=== PATIENT | male | born 1950 | race Caucasian/White ===

== ENCOUNTER 2019-01-04 11:40 | Inpatient (IN) | payer MEDICARE, BC ==
[~2019-01-04] VITALS: Ht 184.2 cm; Wt 112.5 kg
[2019-01-04] MEDS ORDERED: LISI-607 PO (12:04)
[2019-01-04] MEDS ORDERED: ATEN50TA PO (12:04)
[2019-01-04] MEDS ORDERED: AMLO5TAB9 PO (12:04)
[2019-01-04] MEDS ORDERED: SIMV-46 PO (12:04)
[2019-01-04] MEDS ORDERED: TRAZ-214 PO (12:04)
[2019-01-04] MEDS ORDERED: LOXA50CA PO (12:04)
--- NOTE | 2019-01-04 12:06 | NUR ---
PT AMBULATED TO BATHROOM WITH STEADY GAIT.
--- NOTE | 2019-01-04 12:10 | NUR ---
PT MEDICALLY CLEARED, TRANSFER TO [facility] PENDING ON BED AVAILABILITY. HOOKER OPERATOR AWARE.
--- NOTE | 2019-01-04 12:24 | NUR ---
ANA CRISTINA ONE TO ONE SITTER AT BEDSIDE NOW.
--- NOTE | 2019-01-04 13:05 | NUR ---
PT EATING HOSPITAL TRAY WITH GOOD APETITE
[2019-01-04] MEDS ORDERED: NEOMY/BACITRA/POLYMYXIN B OINT UD PACKET TP ONE ×2 (14:44→15:00)
[2019-01-04] MEDS ORDERED: MAGNESIUM HYDROXIDE 30 ML LIQUID UDC PO PRN (15:15)
[2019-01-04] MEDS ORDERED: ACETAMINOPHEN 325 MG TABLET PO PRN (15:15)
[2019-01-04] MEDS ORDERED: MAG HYDROX/AL HYDROX/SIMETH 30 ML LIQUID UDC PO PRN (15:15)
--- NOTE | 2019-01-04 15:16 | NUR ---
PT TRANSFERED TO U.
[2019-01-04] MEDS: LORAZEPAM 0.5 MG TABLET PO PRN (16:22)
--- NOTE | 2019-01-04 17:19 | NUR ---
GPS ADMITTING NOTES: ADMITTING THIS 68YO M PATIENT ON WHEELCHAIR ACCOMPANIED BY ER NURSE, PATIENT AOX1-2, DENIES PAIN, PATIENT HAS RFA SKIN TEAR FROM ADMISSION THAT HE SUSTAINED, FACE TO FACE ASSESSMENT DONE, PATIENT GRANDIOSE MANIC HYPERVERBAL NEEDS REDIRECTION ALL THE TIME, PATIENT WAS GIVEN ADVISEMENT ON HIS 5150 HOLD THAT WILL ON 01/05/19 AT 1719, PATIENT SIGNED DOCUMENTS AND GIVEN HIS PATIENT HANDBOOK, PATIENT WERE ORIENT TO THE UNIT AND TO HIS ROOMMATE, CALLED AND LEFT MESSAGE WITH FAMILY, WILL CONTINUE MONITOR,
--- NOTE | 2019-01-04 18:07 | NUR ---
PATIENT REMAIN HYPERVERBAL AND MANIC HOWEVER REDIRECTABLE , WILL CONTINUE MONITOR
[2019-01-04] MEDS ORDERED: ATENOLOL 50 MG TABLET PO ONE (20:15)
[2019-01-04] MEDS ORDERED: AMLODIPINE 5 MG TABLET PO ONE (20:15)
[2019-01-04] MEDS ORDERED: LISINOPRIL 5 MG TABLET PO ONE (20:15)
--- NOTE | 2019-01-04 20:17 | NUR ---
PATIENT'S B/P IS 164/85 MM[facility] AND PULSE IS 84BPM. DR CHOUDHURY WAS NOTIFY AND OBTAINED NEW ORDER TO ADMINISTER HIS REGULAR B/P HOME MEDS, ONE TIME ORDER. ORDER NOTED AND CARRIED OUT. WILL CONTINUE TO MONITOR.
[2019-01-04 20:20] VITALS: BP 164/85
[2019-01-04] MEDS: SIMVASTATIN 20 MG TABLET PO SCH (20:48)
--- NOTE | 2019-01-04 22:00 | NUR ---
received to care, noisy, manic, and hyperverbal. needs frequent redirection. difficult to redirect, at times. pt is very disorganized. will continue to monitor closely.
[2019-01-05] MEDS: TEMAZEPAM 7.5 MG CAPSULE PO PRN ×2 (00:27→22:18)
[2019-01-05 06:11] VITALS: BP 146/73
--- NOTE | 2019-01-05 06:40 | NUR ---
B/P this morning is 146/73. did not sleep, at all, last night, even after being given PRN restoril. remains labile and loud in his speech. needs frequent redirection.
[2019-01-05 07:30] VITALS: BP 158/81
[2019-01-05] MEDS: LORAZEPAM 0.5 MG TABLET PO PRN (07:45)
[2019-01-05] MEDS: LISINOPRIL 5 MG TABLET PO SCH (08:57)
[2019-01-05] MEDS: ATENOLOL 50 MG TABLET PO SCH (08:57)
[2019-01-05] MEDS: AMLODIPINE 5 MG TABLET PO SCH (08:58)
--- NOTE | 2019-01-05 11:20 | NUR ---
Initial Discharge Plan Patient currently lives at home with his , Kathleen Alonso ([phone]) at their home ([address] [address]; [phone]). Per patient, he would like to return home when he is feeling stable and the doctor states he is ready. Patient's sister, Lorin Hodge ([phone]) is aware of patient's hospitalization and is involved in patient's overall care. forming process line worker will continue to work with patient, family, and MD to ensure a safe and proper discharge plan.
--- NOTE | 2019-01-05 11:22 | NUR ---
Family Contact: Sw Spoke with Patient's sister, Lorin Hodge ([phone]) who is aware of patient's hospitalization and is involved in patient's overall care. Lorin Informed this adjusto writer operator about patient's current living situation, and she stated it is a safe environment for the patient to continue living with his .
--- NOTE | 2019-01-05 11:43 | NUR ---
Family Contact: SW called patient's , Kathleen Alonso ([phone]) however, unsuccessful and left voicemail. Will attempt to call again at a later hour.
[2019-01-05] MEDS: OLANZAPINE 2.5 MG TABLET PO SCH ×2 (12:06→16:37)
[2019-01-05] MEDS: OXCARBAZEPINE 150 MG TABLET PO SCH ×3 (13:03→20:15)
[2019-01-05 15:57] VITALS: BP 126/71
--- NOTE | 2019-01-05 17:37 | NUR ---
GPS: RECEIVED PATIENT ON THE HALLWAY WITH HIS PEN AND PAPER, PATIENT HYPERVERBAL, HOWEVER PATIENT WAS REDIRECTABLE, EASILY IRRITATED AND MANIC, SEEN BY DR. MAX , STARTED WITH MEDICATION, PATIENT COMPLIANT,DID CHANGE WOUND DRESSING FROM HIS RFA SKIN TEAR, NO DISTRESS AT THIS TIME,
[2019-01-05] MEDS: SIMVASTATIN 20 MG TABLET PO SCH (20:15)
[2019-01-05] MEDS ORDERED: OLANZAPINE 5 MG TABLET PO SCH (21:00)
[2019-01-05 21:05] VITALS: BP 156/83
--- NOTE | 2019-01-05 22:00 | NUR ---
received to care, watching tv with peers, pleasant upon approach. remains manic, grandiose, and hyperverbal, but is easy to redirect by staff. compliant with medications and staff direction. as of 2199, he remains awake, watching tv. no distress noted.
--- NOTE | 2019-01-05 22:18 | NUR ---
PRN restoril given, for insomnia.
--- NOTE | 2019-01-05 23:00 | NUR ---
appears to be asleep. no distress noted.
[2019-01-06 07:30] VITALS: BP 182/84
[2019-01-06] MEDS: OXCARBAZEPINE 150 MG TABLET PO SCH ×2 (08:16→12:19)
[2019-01-06] MEDS: OLANZAPINE 2.5 MG TABLET PO SCH ×2 (08:16→17:15)
[2019-01-06] MEDS: LORAZEPAM 0.5 MG TABLET PO PRN ×3 (08:16→17:15)
[2019-01-06] MEDS: AMLODIPINE 5 MG TABLET PO SCH (08:16)
[2019-01-06] MEDS: LISINOPRIL 5 MG TABLET PO SCH (08:17)
[2019-01-06] MEDS: ATENOLOL 50 MG TABLET PO SCH (08:17)
--- NOTE | 2019-01-06 08:53 | NUR ---
ATIVAN 0.5MG GIVEN ORDERED WASTED WITH EL DERSA Addendum: 01/06/19 at 0906 by Sulma Alcaraz RN ERROR CHARTING ON WRONG CHART.
[2019-01-06 16:27] VITALS: BP 138/70
[2019-01-06] MEDS ORDERED: OXCARBAZEPINE 300 MG TABLET PO SCH (17:00)
[2019-01-06 19:53] VITALS: BP 147/65
[2019-01-06] MEDS: DOCUSATE SODIUM 100 MG CAPSULE PO SCH (20:40)
[2019-01-06] MEDS: SIMVASTATIN 20 MG TABLET PO SCH (20:41)
[2019-01-06] MEDS ORDERED: OLANZAPINE 5 MG TABLET PO SCH (21:00)
--- NOTE | 2019-01-06 22:00 | NUR ---
received to care, watching tv with peers, pleasant upon approach. appears less manic, grandiose, and hyperverbal, and is easy to redirect by staff. compliant with medications and staff direction. as of 2199, he remains awake, watching tv. no distress noted. will continue to monitor closely.
[2019-01-06] MEDS: TEMAZEPAM 7.5 MG CAPSULE PO PRN (23:25)
--- NOTE | 2019-01-06 23:25 | NUR ---
remains awake. PRN restoril given, for insomnia. currently lying in bed. no distress noted.
--- NOTE | 2019-01-06 23:55 | NUR ---
appears to be asleep. no distress noted.
[2019-01-07] MEDS: LORAZEPAM 0.5 MG TABLET PO PRN (05:11)
--- NOTE | 2019-01-07 05:11 | NUR ---
PRN ativan given for anxiety
--- NOTE | 2019-01-07 06:27 | NUR ---
appears calmer, now. slept 3.25 hours. currently taking a shower. no distress noted.
[2019-01-07 07:30] VITALS: BP 143/78
[2019-01-07] MEDS: AMLODIPINE 10 MG TABLET PO SCH (08:38)
[2019-01-07] MEDS: LISINOPRIL 5 MG TABLET PO SCH (08:38)
[2019-01-07] MEDS: DOCUSATE SODIUM 100 MG CAPSULE PO SCH ×2 (08:39→20:13)
[2019-01-07] MEDS: ATENOLOL 50 MG TABLET PO SCH (08:39)
[2019-01-07] MEDS: OLANZAPINE 2.5 MG TABLET PO SCH ×2 (08:39→17:03)
[2019-01-07] MEDS: OXCARBAZEPINE 150 MG TABLET PO SCH ×3 (08:39→17:03)
[2019-01-07] MEDS ORDERED: AMLODIPINE 5 MG TABLET PO SCH (09:00)
[2019-01-07] MEDS ORDERED: IBUPROFEN 400 MG TABLET PO PRN (12:45)
[2019-01-07 16:00] VITALS: BP 117/57
[2019-01-07 20:12] VITALS: BP 142/67
[2019-01-07] MEDS: OXCARBAZEPINE 300 MG TABLET PO SCH (20:13)
[2019-01-07] MEDS: OLANZAPINE 5 MG TABLET PO SCH (20:14)
[2019-01-07] MEDS: SIMVASTATIN 20 MG TABLET PO SCH (20:14)
[2019-01-07] MEDS: TEMAZEPAM 7.5 MG CAPSULE PO PRN (23:40)
[2019-01-08 07:30] VITALS: BP 145/83
[2019-01-08] MEDS: OXCARBAZEPINE 150 MG TABLET PO SCH ×3 (08:23→17:10)
[2019-01-08] MEDS: AMLODIPINE 10 MG TABLET PO SCH (08:23)
[2019-01-08] MEDS: OLANZAPINE 2.5 MG TABLET PO SCH ×2 (08:23→17:10)
[2019-01-08] MEDS: DOCUSATE SODIUM 100 MG CAPSULE PO SCH ×2 (08:24→20:17)
[2019-01-08] MEDS: ATENOLOL 50 MG TABLET PO SCH (08:24)
[2019-01-08] MEDS: LISINOPRIL 5 MG TABLET PO SCH (08:24)
[2019-01-08 16:00] VITALS: BP 116/64
--- NOTE | 2019-01-08 17:10 | NUR ---
Gps/Technology Intern- Talking loud, laughing , irritable, rudness noted. tends to hang out by the Nurses Station, instructed to stay in the activity room . Patient had been on the phone most of the pm.
[2019-01-08] MEDS: OLANZAPINE 5 MG TABLET PO SCH (20:17)
[2019-01-08] MEDS: OXCARBAZEPINE 300 MG TABLET PO SCH (20:17)
[2019-01-08] MEDS: SIMVASTATIN 20 MG TABLET PO SCH (20:17)
[2019-01-08 20:40] VITALS: BP 146/64
[2019-01-08] MEDS: TEMAZEPAM 7.5 MG CAPSULE PO PRN (22:17)
[2019-01-09 07:30] VITALS: BP 131/53
[2019-01-09] MEDS: DOCUSATE SODIUM 100 MG CAPSULE PO SCH ×2 (08:31→20:05)
[2019-01-09] MEDS: OLANZAPINE 2.5 MG TABLET PO SCH ×2 (08:31→17:15)
[2019-01-09] MEDS: OXCARBAZEPINE 150 MG TABLET PO SCH ×3 (08:31→17:15)
[2019-01-09] MEDS: LISINOPRIL 5 MG TABLET PO SCH (08:32)
[2019-01-09] MEDS: AMLODIPINE 10 MG TABLET PO SCH (08:32)
[2019-01-09] MEDS: ATENOLOL 50 MG TABLET PO SCH (08:33)
--- NOTE | 2019-01-09 11:03 | NUR ---
Gps/Project Management It Specialist- Patient noted asleep in bed for about 30 minutes.
[2019-01-09 15:58] VITALS: BP 133/64
--- NOTE | 2019-01-09 15:59 | NUR ---
Gps/Bag Machine Set Up Operator- Attending and participating in his group activities , episodes of being hyperverbal , manic labile mood , talking and laughing inappropriately..
--- NOTE | 2019-01-09 16:44 | NUR ---
PT NOTED QUITE MANIC, INTRUSIVE, RESPONDING TO INTERNAL STIMULI. TALKING TO SELF AND LAUGHING INAPPROPRIATELY. REQUIRES FREQUENT REDIRECTION. ATTENDING ACTIVITIES AT THIS TIME.
[2019-01-09 20:00] VITALS: BP 111/60
--- NOTE | 2019-01-09 20:00 | NUR ---
RECEIVED PATIENT IN THE DAY ROOM SITTING IN A CHAIR WITH OTHER CLIENTS. PATIENT IS NOTED A/O X 1, HYPERVERBAL, TANGENTAL, WORD SALAD, AND DELUSIONAL. IMPAIRED INSIGHT AND JUDGMENT IS NOTED TO THE REASON FOR HIS ADMISSION TO [facility]HU. HOWEVER, PATIENT IS REDIRECTABLE. V/S STABLE AT THIS TIME, PATIENT IS REASSURED FOR HIS SAFETY. SAFETY AND FALL PRECAUTION IN PLACE. WILL CONTINUE TO MONITOR.
[2019-01-09] MEDS: OLANZAPINE 5 MG TABLET PO SCH (20:05)
[2019-01-09] MEDS: SIMVASTATIN 20 MG TABLET PO SCH (20:05)
[2019-01-09] MEDS: OXCARBAZEPINE 300 MG TABLET PO SCH (20:06)
[2019-01-09] MEDS: TEMAZEPAM 7.5 MG CAPSULE PO PRN (23:03)
[2019-01-10 07:30] VITALS: BP_SYST 112; BP_SYST 120; BP_DIAS 60; BP_DIAS 74
[2019-01-10] MEDS: OLANZAPINE 2.5 MG TABLET PO SCH ×2 (08:47→17:07)
[2019-01-10] MEDS: OXCARBAZEPINE 150 MG TABLET PO SCH ×3 (08:47→17:07)
[2019-01-10] MEDS: DOCUSATE SODIUM 100 MG CAPSULE PO SCH ×2 (08:47→20:24)
[2019-01-10] MEDS: AMLODIPINE 10 MG TABLET PO SCH (08:47)
[2019-01-10] MEDS: LISINOPRIL 5 MG TABLET PO SCH (08:48)
[2019-01-10] MEDS: ATENOLOL 50 MG TABLET PO SCH (08:49)
--- NOTE | 2019-01-10 13:05 | NUR ---
Gps/Manager Wind- Stayed in the activity room during lhis meals. Right forarm skin tear was cleansed with NS, redressed, ,< redness, site covered wit bandaid. Interactive , hyperverbal ,conversant with staff, noted orientation x 2-3., less needy .
[2019-01-10 16:02] VITALS: BP 105/63
[2019-01-10 20:16] VITALS: BP 146/81
[2019-01-10] MEDS: OLANZAPINE 5 MG TABLET PO SCH (20:24)
[2019-01-10] MEDS: SIMVASTATIN 20 MG TABLET PO SCH (20:24)
[2019-01-10] MEDS: OXCARBAZEPINE 300 MG TABLET PO SCH (20:24)
[2019-01-10] MEDS: TEMAZEPAM 7.5 MG CAPSULE PO PRN (23:07)
--- NOTE | 2019-01-11 06:16 | NUR ---
PT SLEPT 3 HOURS AND 45 MIN. PT SHOWS NO SIGNS OF ACUTE DISTRESS. PT COMPLIANT WITH CARE. PRESCRIBED MEDICATION GIVEN AND PT TOLERATED IT WELL. GIVEN . PT HYPERVERBAL. NEEDS REORIENTATION. PT TOLERATED IT WELL. SAFETY AND COMFORT PROVIDED. WILL ENDORSE TO INCOMING NURSE FOR CONTINUITY OF CARE.
[2019-01-11 07:30] VITALS: BP 151/78
--- NOTE | 2019-01-11 08:25 | NUR ---
Social work note/FIREARMS REPORT ([employer]): Dry Color Tester completed and submitted a [employer] firearms report for 5250 grave disability certifications. A copy of report has been placed in patient chart.
[2019-01-11] MEDS: OLANZAPINE 2.5 MG TABLET PO SCH ×2 (08:38→16:50)
[2019-01-11] MEDS: LISINOPRIL 5 MG TABLET PO SCH (08:39)
[2019-01-11] MEDS: OXCARBAZEPINE 150 MG TABLET PO SCH ×2 (08:39→12:55)
[2019-01-11] MEDS: DOCUSATE SODIUM 100 MG CAPSULE PO SCH ×2 (08:39→20:09)
[2019-01-11] MEDS: AMLODIPINE 10 MG TABLET PO SCH (08:39)
[2019-01-11] MEDS: ATENOLOL 50 MG TABLET PO SCH (08:40)
--- NOTE | 2019-01-11 08:43 | NUR ---
Social work note/Discharge note: Patient will be discharged back home today ([address], [place] [address]; [phone]). Patient will be picked up by his sister, Lorin Villaseñor ([phone]) at 11:00. Patient is alert and oriented times 4, denies suicidal or homicidal ideation, and is able to provide for self-care. Patient will be following up with his psychiatrist Marino Livingston (Address: [address] [place] [address]; ). Patient will also be following up with his primary care physician: Dr. Juanpablo Canales (Address: [address], [place] [address]; ). Patient was also provided with additional mental health referrals to [facility] ([address], [place] [address] ) and the [facility] ([phone]). Patient was also provided with a brief substance abuse intervention and provided with referrals to [facility] ([phone]) and [facility] [place] [facility] . Addendum: 01/11/19 at 0912 by TRIPP GUARDADO Discharge today cancelled, will be postponed.
[2019-01-11] MEDS: LORAZEPAM 0.5 MG TABLET PO PRN ×2 (12:55→16:50)
[2019-01-11 15:31] VITALS: BP 143/74
[2019-01-11 18:15] LABS: *BILIRUBIN,URIN NEGATIVE (NEGATIVE); *CLARITY,URINE CLEAR (CLEAR); *COLOR,URINE YELLOW (YELLOW); *KETONES,URINE NEGATIVE (NEGATIVE); *UROBILINOGEN,URINE 0.2 E.U./dl (NORMAL); LEUKOCYTE ESTERASE ,URINE NEGATIVE (NEGATIVE); NITRITE, URINE NEGATIVE (NEGATIVE); UGLUCOSE NEGATIVE (NEGATIVE)
[2019-01-11 18:24] LABS: *BLOOD, URINE NEGATIVE (NEGATIVE)
[2019-01-11 20:00] VITALS: BP 141/73
[2019-01-11] MEDS: OLANZAPINE 5 MG TABLET PO SCH (20:09)
[2019-01-11] MEDS: SIMVASTATIN 20 MG TABLET PO SCH (20:09)
[2019-01-11] MEDS: OXCARBAZEPINE 300 MG TABLET PO SCH (20:09)
[2019-01-11] MEDS: TEMAZEPAM 7.5 MG CAPSULE PO PRN (22:26)
[2019-01-12 06:16] LABS: BASOPHILS % (AUTO) 0.6 % (0.0-2.0); EOSINOPHILS # (AUTO) 0.2 K/uL (0.0-0.7); EOSINOPHILS % (AUTO) 2.5 % (0.0-7.0); HEMATOCRIT 35.4 % (36.7-47.1); HEMOGLOBIN 12.5 g/dL (12.5-16.3); LYMPHOCYTES # (AUTO) 1.9 K/uL (20.0-40.0); LYMPHOCYTES % (AUTO) 28.9 % (20.5-51.5); MEAN CORPUSCULAR HEMOGLOBIN 31.8 uug (23.8-33.4); MEAN CORPUSCULAR HGB CONC 35 g/dL (32.5-36.3); MEAN CORPUSCULAR VOLUME 89.9 fL (73.0-96.2); MONOCYTES # (AUTO) 1.1 K/uL (2.0-10.0); MONOCYTES % (AUTO) 16.4 % (0.0-11.0); NEUTROPHILS # (AUTO) 3.4 K/uL (1.8-8.9); NEUTROPHILS % (AUTO) 51.6 % (38.5-71.5); PLATELET COUNT (AUTO) 156 K/uL (152-348); RED BLOOD CELL COUNT(AUTO) 3.93 MIL/uL (4.06-5.63); WHITE BLOOD COUNT (AUTO) 6.6 K/uL (3.6-10.2)
[2019-01-12 06:28] LABS: BILIRUBIN,TOTAL 0.3 mg/dL (0.2-1.0); CREATININE 0.7 mg/dL (0.6-1.3); POTASSIUM 3.7 mmol/L (3.5-5.1); TOTAL PROTEIN, SERUM 6.2 g/dL (6.4-8.2)
--- NOTE | 2019-01-12 06:50 | NUR ---
PATIENT SLEPT FOR APPROX 6.30 HRS THROUGH THE NIGHT. HE IS NOTED LESS HYPERVERBAL, LESS INTRUSIVE. HE IS REDIRECTABLE. WILL CONTINUE TO MONITOR,
[2019-01-12 07:28] LABS: EOSINOPHILS % (MANUAL) 2 % (0-8); LYMPHOCYTES % (MANUAL) 29 % (20-40); MONOCYTES % (MANUAL) 12 % (2-10); NEUTROPHILS % (MANUAL) 57 % (42-75)
[2019-01-12 07:30] VITALS: BP 146/67
[2019-01-12] MEDS: DOCUSATE SODIUM 100 MG CAPSULE PO SCH ×2 (08:59→20:05)
[2019-01-12] MEDS: OXCARBAZEPINE 150 MG TABLET PO SCH ×2 (08:59→13:12)
[2019-01-12] MEDS: LISINOPRIL 5 MG TABLET PO SCH (09:00)
[2019-01-12] MEDS: AMLODIPINE 10 MG TABLET PO SCH (09:00)
[2019-01-12] MEDS: ATENOLOL 50 MG TABLET PO SCH (09:00)
[2019-01-12] MEDS: OLANZAPINE 2.5 MG TABLET PO SCH ×2 (09:01→17:55)
[2019-01-12 16:27] VITALS: BP 153/63
[2019-01-12 20:00] VITALS: BP 116/59
[2019-01-12] MEDS: OXCARBAZEPINE 300 MG TABLET PO SCH (20:05)
[2019-01-12] MEDS: SIMVASTATIN 20 MG TABLET PO SCH (20:05)
[2019-01-12] MEDS: OLANZAPINE 5 MG TABLET PO SCH (20:05)
[2019-01-12] MEDS: TEMAZEPAM 7.5 MG CAPSULE PO PRN (22:18)
[2019-01-13 08:00] VITALS: BP 109/55
--- NOTE | 2019-01-13 08:14 | NUR ---
Social Work Note/Discharge Note: Patient will be discharged back home today ([address], [place] [address]; [phone]). Patient will be picked up by his sister, Lorin Villaseñor ([phone]) at 1:00pm. Patient is alert and oriented times 4, denies suicidal or homicidal ideation, and is able to provide for self-care. Patient will be following up with his psychiatrist Marino Livingston (Address: [address] [place] [address]. [address] [place] [address]; ); Precipitate Washer contacted to make a follow up appointment and left a voicemail for a return call. Patient will also be following up with his primary care physician: Dr. Juanpablo Canales (Address: [address], [place] [address]; ) and has a follow up appointment scheduled on Saturday, January 26, 2019 at 4:00PM. Patient was also provided with additional mental health referrals to [facility] ([address], [place] [address] ) and the [facility] ([phone]). Patient was also provided with a brief substance abuse intervention and provided with referrals to [facility] ([phone]) and [facility] [place] [facility] . Addendum: 01/13/19 at 0817 by TRIPP GUARDADO Patient cotton picker time for discharge will be at 11:00AM.
[2019-01-13 09:00] VITALS: BP 109/55
[2019-01-13] MEDS: AMLODIPINE 10 MG TABLET PO SCH (09:00)
[2019-01-13] MEDS: ATENOLOL 50 MG TABLET PO SCH (09:00)
[2019-01-13] MEDS: LISINOPRIL 5 MG TABLET PO SCH (09:00)
[2019-01-13] MEDS: OXCARBAZEPINE 150 MG TABLET PO SCH (09:17)
[2019-01-13] MEDS: OLANZAPINE 2.5 MG TABLET PO SCH (09:17)
[2019-01-13] MEDS: DOCUSATE SODIUM 100 MG CAPSULE PO SCH (09:17)
[2019-01-13 10:25] LABS: CREATININE 0.7 mg/dL (0.6-1.3)
--- NOTE | 2019-01-13 11:39 | NUR ---
Patient is being discharged back home today. Pt's sister, Lorin Villaseñor is here to pick him up. Pt is A/O x4. No distress. Pt agreeing to go. Discharge instructions given, patient verbalizes understanding. All belongings and valuables returned.
== END 2019-01-13 11:43 | disposition home or self-care (01) | DRG 885 ==
LOC: ER 11:42 → GPS 14:57
PROVIDERS: ADMIT Psychiatry & Neurology Psychosomatic Medicine; ATTEND Internal Medicine
DX: F25.0 Schizoaffective disorder, bipolar type (principal); E22.2 Syndrome of inappropriate secretion of antidiuretic hormone; E78.5 Hyperlipidemia, unspecified; I10 Essential (primary) hypertension; T50.915A Adverse effect of multiple unspecified drugs, medicaments and biological substances, initial encounter; Y92.019 Unspecified place in single-family (private) house as the place of occurrence of the external cause; R63.1 Polydipsia; M19.90 Unspecified osteoarthritis, unspecified site
CPT/HCPCS: 36415; 70030-TC; 71045; 85025; 87086; 93005; A4663

== ENCOUNTER 2020-04-30 13:37 | Inpatient (IN) | payer MEDICARE, BC ==
[~2020-04-30] VITALS: Ht 182.9 cm; Wt 112.0 kg
[~2020-04-30 13:37] MED LIST: AMLO-212 PO; ATEN50TA PO; LISI-782 PO; SIMV-46 PO
--- NOTE | 2020-04-30 13:40 | NUR ---
Offered pt , sandwich, declined. Provided fluids.
--- NOTE | 2020-04-30 13:44 | NUR ---
DR Tijerina seen and examined the pt.
[2020-04-30] MEDS ORDERED: ESZO3TAB27 PO (13:56)
[2020-04-30] MEDS ORDERED: IBUP-1953 PO (13:56)
[2020-04-30] MEDS ORDERED: CYAN-51 PO (13:56)
[2020-04-30] MEDS ORDERED: FLUT16SP16 NS (13:56)
[2020-04-30] MEDS ORDERED: ZOLP5TAB8 PO (13:56)
[2020-04-30] MEDS ORDERED: OMEG1CAP55 PO (13:56)
[2020-04-30] MEDS ORDERED: FINA5TAB11 PO (13:56)
[2020-04-30] MEDS ORDERED: QUET100T PO (13:56)
[2020-04-30] MEDS ORDERED: FURO40TA5 PO (13:56)
[2020-04-30] MEDS ORDERED: DIVA250T4 PO (13:56)
[2020-04-30] MEDS ORDERED: FINA1TAB PO (13:56)
--- NOTE | 2020-04-30 14:16 | NUR ---
Pt is medically cleared by Dr Tijerina.
--- NOTE | 2020-04-30 15:15 | NUR ---
RECEIVED PT ON W/C ACCOMPANIED BY ER NURSE. ON REPORT, NOTED PT SODIUM LEVEL OF 129. GEOGRAPHY INSTRUCTOR QUESTIONED APPROPRIATE ADMISSION TO MENTAL HEALTH UNIT, BUT ER NURSE STATED SHE "GAVE HIM SOME SALTINE CRACKERS AND THE ER DOCTOR MEDICALLY CLEARED HIM." PT APPROVED BY RN HYDRODYNAMICS PROFESSOR WELL. PT IS ASYMPTOMATIC AT THIS TIME. UPON FACE TO FACE EVALUATION, PT IS AOX3, QUITE MANIC, HYPERVERBAL, SPEAKING IN WORD SALAD AND FLIGHT OF IDEAS. REQUIRES FREQUENT REDIRECTION. DENIES PAIN OR DISCOMFORT. DENIES SI AND HI. PTS RIGHTS HANDBOOK GIVEN TO PT. PT ABLE TO MAKE ALL NEEDS KNOWN. SELF CARE, ABLE TO PERFORM ALL ADLS. DR. CRANE AND DR. EMI NOTIFIED OF ADMISSION.
[2020-04-30 15:29] VITALS: BP 167/88
[2020-04-30] MEDS ORDERED: MAG HYDROX/AL HYDROX/SIMETH 30 ML LIQUID UDC PO PRN (15:30)
[2020-04-30] MEDS ORDERED: MAGNESIUM HYDROXIDE 30 ML LIQUID UDC PO PRN (15:30)
[2020-04-30 20:30] VITALS: BP 151/87
[2020-04-30] MEDS: TEMAZEPAM 7.5 MG CAPSULE PO PRN (20:34)
[2020-04-30] MEDS: LORAZEPAM 0.5 MG TABLET PO PRN (22:46)
--- NOTE | 2020-04-30 23:10 | NUR ---
A/O X2,ANXIOUS,RESTLESS,POOR CONCENTRATION,NEEDY,DEMANDING,ATTENTION SEEKING,AND MOOD SWING UPON APPROACH. UP AND DOWN,BACK AND FORTH TO NURSING STATION ,ASKING FOR MORE BLANK PAPERS.STILL KEPT SAYING THAT HE HAS APPOINTMENT @ 4PM TOMORROW.TALKING TO BY THE PHONE SEVERAL TIMES.PRN MEDS WERE GIVEN FOR SLEEP AND ANXIETY/AGITATION WITH SL.EFF. FREQ.REALITY ORIENTATION AND REDIRECTION NEEDED.WILL CONTINUE TO MONITOR.
[2020-05-01] MEDS ORDERED: OLANZAPINE 10 MG VIAL IM ONE ×2 (00:45→13:30)
--- NOTE | 2020-05-01 01:00 | NUR ---
PT KEPT GETTING UP AND DOWN,TALKING TO HIMSELF LOUDER AND LOUDER,IN AND OUT OF HIS ROOM TO NURSING STATION THEN STARTED YELLING AND SCREAMING.UNABLE TO FOLLOW STAFF'S DIRECTION WHEN WAS TOLD TO LOWER HIS VOICE.PACING IN THE HALLWAY,NONSTOP YELLING , SCREAMING AND CURSING. WAS NOTIFIED WITH ORDER TO GIVE ZYPREXA 10 MG IM STAT-CARRIED OUT,IM MED WAS GIVEN TO PT ORDERED WITH PENDING RESULT.CONTINUE TO MONITOR.
--- NOTE | 2020-05-01 04:58 | NUR ---
PT WAS ABLE TO CALM DOWN BUT JUST FOR A SHORT PERIOD OF TIME. CONTINUE UP AND DOWN,MUMBLING TO SEKF,EXCESSIVE TALKING BUT DIDN'T MAKE ANY SENSES-WORD SALAD WITH PERIOD OF YELLING AND SCREAMING @ TIMES.FREQ.REDIRECTION PROVIDED.TOOK A SHORT NAP ONLY THIS SHIFT
[2020-05-01] MEDS: LORAZEPAM 0.5 MG TABLET PO PRN (05:21)
--- NOTE | 2020-05-01 05:25 | NUR ---
Patient noted hyperverbal, word salad, he is hard to redirect. patient slept for approax 1.30 hrs through the night. Ativan 0.5mg PO PRN was given. will continue to monitor.
[2020-05-01 07:30] VITALS: BP 151/80
[2020-05-01] MEDS ORDERED: LORAZEPAM 0.5 MG TABLET PO PRN (10:30)
[2020-05-01 11:01] LABS: POTASSIUM 3.7 mmol/L (3.5-5.1)
[2020-05-01] MEDS: OLANZAPINE ZYDIS 5 MG TAB.RAPDIS PO SCH ×2 (11:08→20:56)
[2020-05-01] MEDS: DIVALPROEX SPRINKLE 125 MG CAP.SPRINK PO SCH ×2 (11:08→17:08)
[2020-05-01] MEDS: LORAZEPAM 1 MG TABLET PO PRN ×2 (11:09→17:09)
[2020-05-01 11:10] LABS: THYROID STIMULATING HORMONE 2.802 mIU/mL (0.358-3.740)
[2020-05-01] MEDS: AMLODIPINE 5 MG TABLET PO SCH (11:30)
[2020-05-01] MEDS ORDERED: FLUTICASONE PROP NASAL SPRAY 16 GM BOTTLE NS SCH (11:30)
[2020-05-01] MEDS: CYANOCOBALAMIN 1,000 MCG TABLET PO SCH (11:30)
[2020-05-01] MEDS: ATENOLOL 50 MG TABLET PO SCH (11:30)
[2020-05-01] MEDS: OMEGA-3 FATTY ACIDS/FISH OIL CAPSULE PO SCH (11:41)
--- NOTE | 2020-05-01 13:12 | NUR ---
GPS: Nursing Notes: Severe Agitation: Patient is away and responding to his name, poor anger management, loud and pressured speech, verbal abusive, using profanities toward staff, threatening of killing staff, setting limits, but unable to be redirected, labile, unpredictable behavior, clenching his fits toward staff, threatening staff, "I am going to kill.. Fucking asshole.. I am leaving.. My is waiting for me outside..", redirected and reoriented, but run toward exit door and trying to open door and not allow other staff to leave, restless behavior, Dr. Anne jha, continue to monitor for safety, continue with treatment plan.
[2020-05-01] MEDS ORDERED: LORAZEPAM 2 MG/1 ML VIAL IM ONE (13:30)
--- NOTE | 2020-05-01 13:34 | NUR ---
GPS: Nursing Notes: Chemical Restraint: Patient continue to be agitated, loud and angry affect, not following staff directions, shouting at staff, "My is waiting for me outside..", verbal abusive, using profanities toward staff, poor anger management, threatening staff, standing by the exit door and blocking the door, shouting "FUCK YOU...Fuck YOU..", restless behavior, unable to be redirected, code hank called, Dr. Rodríguez called back and ordered: Zyprexa 10mg IM and Ativan 1mg IM STAT for severe agitated behavior, R=20, continue to monitor for safety, continue with treatment plan.
--- NOTE | 2020-05-01 13:55 | NUR ---
PIPPA Initial Discharge Plan: Patient lives at his home with his Kathleen ([phone]) [address] [address]. Patient's siter, Lorin Villaseñor ([phone]) is involved in the patient's treatment and discharge plan. PIPPA left a voicemail for patient's , Kathleen. Patient will return home upon discharge. PIPPA will continue to work with patient, family, and MD to ensure a safe and proper discharge plan.
--- NOTE | 2020-05-01 13:56 | NUR ---
PIPPA Family/Sister Contact: PIPPA spoke with patient's sister, Lorin Villaseñor, ([phone]) and discussed treatment and discharge plan. Lorin provided some collateral information and will remain involved in the patient's care.
--- NOTE | 2020-05-01 13:56 | NUR ---
PIPPA Family/ Contact: PIPPA contacted patient's , Kathleen ([phone]) to discuss patient's treatment and discharge plan. Kathleen stated she is heading out and will talk later. PIPPA let a voicemail to follow up.
--- NOTE | 2020-05-01 13:58 | NUR ---
Brief Substance Abuse Intervention: Patient was provided with a brief substance abuse intervention for alcohol use and referred to [facility] [address], [place] [address] ([phone]); [facility] [address], [address], [place] [address] ([phone]); [facility] ([phone]); [facility] ([phone]); [facility] ([phone]); and National Suicide Prevention Lifeline ([phone]).
--- NOTE | 2020-05-01 14:04 | NUR ---
GPS: Nursing Notes: Reassessment of Chemical Restraint: Patient is awake and responding to his name, continue to be loud and angry, but with less intensity, episodes of talking incoherently, believes that his is in room # 139, attention seeking behavior, setting limits, but continue to be argumentative and using profanities toward staff, medication's IM were helpful, continue to monitor for safety, R=20, continue with treatment plan.
--- NOTE | 2020-05-01 14:34 | NUR ---
Firearms Report: Immigration Lawyer completed and submitted a [employer] firearms report for 5150 grave disability certifications. A copy of report has been placed in patient chart.
[2020-05-01 15:31] VITALS: BP 111/60
[2020-05-01] MEDS: LISINOPRIL 10 MG TABLET PO SCH (17:09)
[2020-05-01] MEDS: SIMVASTATIN 20 MG TABLET PO SCH (17:09)
--- NOTE | 2020-05-01 18:41 | NUR ---
GPS: Nursing Notes: Mood Disturbance: Manic/Labile: Patient is awake and responding to his name, labile, unpredictable behavior, bizarre behavior, episode of crawling on the floor, overly disruptive by shouting profanities toward peers and staff, redirected, but shouting "YOU FUCKEN ASSHOLE..", intrusive by getting into female patient's room and screaming "SHE IS MY ... ASSHOLE..", attention seeking behavior by constantly coming to the nursing station and shouting profanities to staff and peers near the nursing station, poor impulse control, impaired judgment, unable to formulate a viable plan for self care, continue with treatment plan.
[2020-05-01 20:29] VITALS: BP 150/69
[2020-05-01] MEDS ORDERED: chlorproMAZINE 50 MG/2 ML AMPUL IM ONE (23:00)
--- NOTE | 2020-05-01 23:00 | NUR ---
patient is agitated. yelling laud. offered ativan 1 mg po.but patient refused. talking to him self.
--- NOTE | 2020-05-01 23:43 | NUR ---
GPS: Patient continue to be agitated, loud and angry uncooperative with staff, shouting at staff, verbally abusive, using profanities toward staff, poor anger management, threatening staff, standing by the exit door and blocking the door, shouting, restless behavior, unable to be redirected, code hank called, Dr. Rodríguez called back and ordered: Thorazine 100 mg IM for severe agitated behavior, Resp 18, continue to monitor for safety, patient is resting in bed in his room quietly. continue with treatment plan.
--- NOTE | 2020-05-02 00:43 | NUR ---
patient still wondering around in his room.uncooperative with nursing care.
--- NOTE | 2020-05-02 01:00 | NUR ---
GPS: OFFERED RESTORIL PO FOR SLEEP.PATIENT REFUSED.
--- NOTE | 2020-05-02 02:50 | NUR ---
patient is very agitated wondering around in other patient't rooms. distubing them. ativan 1 mg po given.
[2020-05-02] MEDS: LORAZEPAM 1 MG TABLET PO PRN ×3 (02:52→23:42)
--- NOTE | 2020-05-02 03:50 | NUR ---
ativan po prn not effective. continue monitor patient for safety.
--- NOTE | 2020-05-02 05:35 | NUR ---
GPS: Remain uncooperative through the night. Patient noted hyperverbal, word salad, hard to redirect. Thorazine 100 mg im x1 givem for agitation with some help . Ativan 0.5mg PO PRN was given not effective. will continue to monitor.
--- NOTE | 2020-05-02 06:00 | NUR ---
slept zero hrs last night. refused sleeping medications.
[2020-05-02] MEDS: OLANZAPINE ZYDIS 5 MG TAB.RAPDIS PO SCH ×2 (07:17→20:42)
[2020-05-02] MEDS: DIVALPROEX SPRINKLE 125 MG CAP.SPRINK PO SCH ×2 (07:17→17:10)
[2020-05-02] MEDS: FUROSEMIDE 40 MG TABLET PO SCH (08:56)
[2020-05-02] MEDS: OMEGA-3 FATTY ACIDS/FISH OIL CAPSULE PO SCH (08:56)
[2020-05-02] MEDS: ATENOLOL 50 MG TABLET PO SCH (08:57)
[2020-05-02] MEDS: FINASTERIDE 5 MG TABLET PO SCH (08:57)
[2020-05-02] MEDS: AMLODIPINE 5 MG TABLET PO SCH (08:57)
[2020-05-02] MEDS: CYANOCOBALAMIN 1,000 MCG TABLET PO SCH (08:57)
[2020-05-02] MEDS: LISINOPRIL 10 MG TABLET PO SCH ×2 (08:57→17:00)
[2020-05-02] MEDS ORDERED: Medication Not On Formulary EA (Omega-3 Acid Ethyl Esters (Lovaza) 1 GM) PO SCH (09:00)
--- NOTE | 2020-05-02 11:12 | NUR ---
GPS: Nursing Notes: Severe Agitation: Patient is awake and responding to his name by shouting, verbal abusive, using profanities toward peers and staff, loud and pressured speech, threatening staff, spitting on other patient's food, shouting "FUCK YOU...MOTHER FUCKER.. I AM GOING TO KILL YOU..", bizarre behavior by banging on the merino and the exits signs, episode of blocking the exit doors and shouting "NOBODY LEAVE... FUCK YOU...ASSHOLE..", redirected during shift, but unable to be redirected, intrusive, constantly going into other female patient's room and screaming "SHE IS MY ... MOTHER FUCKER..", clenching his fists toward and constantly threatening to kill staff, episodes of disrobing on the hallway and shouting, restless behavior, Dr. Anne jha, continue to monitor for safety, continue with treatment plan.
--- NOTE | 2020-05-02 11:23 | NUR ---
Individual Counseling: skip pit worker met with patient for brief counseling and assessed for patient's presenting problem manic mood. Patient presented with labile mood. Patient yelling and pacing the hallway. Patient unable to concentrate and was laughing inappropriately. This SW unable to conduct therapy at this time.
[2020-05-02] MEDS ORDERED: chlorproMAZINE 50 MG/2 ML AMPUL IM ONE ×2 (11:30→20:00)
--- NOTE | 2020-05-02 11:34 | NUR ---
GPS: Nursing Notes: Chemical Restraint: Patient continue to be restless, overly disruptive by shouting, constantly coming to the nursing station, using profanities toward staff and nurse, spitting toward the nursing station, threatening to kill staff "I AM GOING TO FUCKEN KILL YOU..", unable to be redirected, punching the merino, banging on the exits signs, disrobing, crawling on the floor, Dr. Rodríguez called and ordered: Thorazine 100mg IM STAT, medication given at this time, R=18, continue to monitor for safety, continue with treatment plan.
--- NOTE | 2020-05-02 12:04 | NUR ---
GPS: Nursing Notes: Reassessment of Chemical Restraint: Patient is awake and responding to his name, poor impulse control, disorganized, attention seeking behavior, continue to be loud and disruptive, getting into other patient's room, constantly redirected during shift, medication IM STAT not effective, R=18, continue using profanities toward peers and staff, episodes of disrobing, bizarre behavior by shouting inappropriately, continue to monitor for safety, continue with treatment plan.
[2020-05-02] MEDS: CLONAZEPAM 0.5 MG TABLET PO SCH ×2 (12:48→17:10)
[2020-05-02] MEDS: SIMVASTATIN 20 MG TABLET PO SCH (17:10)
--- NOTE | 2020-05-02 20:15 | NUR ---
CHEMICAL RESTRAINT.RECEIVED PATIENT PACING UP AND DOWN THE HALLWAY. YELLING PROFANITIES AT PEERS AND STAFF,HYPER VERBAL WITH WORD SALAD, INTRUSIVE AND ENTERING OTHER PATIENTS ROOM AND MAKING THEM FEARFUL. DISROBING, SPITTING ON OTHERS. WE WERE UNABLE TO RE DIRECT HIM HE KEPT CAUSING A DISRUPTION IN THE R[place]. DR CRANE WAS CALLED WHO ORDERED IM THORAZINE 100MG IM TO BE GIVEN. SAME GIVEN AT 20;10. REFUSED HIS VITALS TO BE TAKEN AFTER THAT. WILL CONTINUE TO MONITOR.
--- NOTE | 2020-05-02 21:20 | NUR ---
CHEMICAL RESTRAINT RE ASSESSMENT.IM THORAZINE HAD VERY LITTLE EFFECT. HE KEPT YELLING , DISROBING AND DID NOT CALM DOWN A BIT. HE WILL BENEFIT FROM 1:1 SITTER.
[2020-05-02] MEDS: TEMAZEPAM 7.5 MG CAPSULE PO PRN (22:24)
[2020-05-02] MEDS: ACETAMINOPHEN 325 MG TABLET PO PRN (23:42)
--- NOTE | 2020-05-03 02:53 | NUR ---
AT ABOUT 22:25 PATIENT WAS GIVEN TAB RESTORIL TO HELP HIM SLEEP. AND AT 23;25 TAB ATIVAN WAS GIVEN TO CALM HIS AGITATION. HE SLEPT FOR ALL OF AN HOUR. HE REALLY WILL BENEFIT FROM 1:1 SITTER HE NEEDS CONSTANT RE DIRECTION AND LIMIT SETTING. WILL CONTINUE TO MONITOR.
[2020-05-03] MEDS: LORAZEPAM 1 MG TABLET PO PRN (06:11)
--- NOTE | 2020-05-03 06:54 | NUR ---
PATIENT SLEPT ON AND OFF FOR ONLY 1:30 HOURS. UP AND BANGING DOORS, TRYING TO ENTER OTHER PATIENTS ROOM. RE DIRECTED SEVERAL TIMES.
[2020-05-03 07:30] VITALS: BP 116/56
[2020-05-03] MEDS: OMEGA-3 FATTY ACIDS/FISH OIL CAPSULE PO SCH (09:00)
[2020-05-03] MEDS: CYANOCOBALAMIN 1,000 MCG TABLET PO SCH (09:00)
[2020-05-03] MEDS: DIVALPROEX SPRINKLE 125 MG CAP.SPRINK PO SCH ×2 (09:03→17:18)
[2020-05-03] MEDS: CLONAZEPAM 0.5 MG TABLET PO SCH ×3 (09:03→17:00)
[2020-05-03] MEDS: FINASTERIDE 5 MG TABLET PO SCH (09:04)
[2020-05-03] MEDS: OLANZAPINE ZYDIS 5 MG TAB.RAPDIS PO SCH ×3 (09:04→17:16)
[2020-05-03] MEDS: AMLODIPINE 5 MG TABLET PO SCH (09:04)
[2020-05-03] MEDS: LISINOPRIL 10 MG TABLET PO SCH ×2 (09:04→17:00)
[2020-05-03] MEDS: FUROSEMIDE 40 MG TABLET PO SCH (09:04)
[2020-05-03] MEDS: ATENOLOL 50 MG TABLET PO SCH (09:05)
--- NOTE | 2020-05-03 11:13 | NUR ---
Individual Counseling: cattle care worker met with patient for brief counseling and assessed for patient's presenting problem manic mood. Patient appeared labile, hyperverbal, tangential, and manic. Patient was uncooperative with this SW while conducting therapy. Patient was yelling and pacing the hallway. Patient was experiencing visual/auditory hallucinations. He was yelling "my is in the other room". This SW attempted to comfort patient and re-direct him. SW unable to conduct therapy at this time.
[2020-05-03] MEDS ORDERED: LORAZEPAM 2 MG/1 ML VIAL IM ONE (11:45)
[2020-05-03] MEDS ORDERED: OLANZAPINE 10 MG VIAL IM ONE (11:45)
--- NOTE | 2020-05-03 12:20 | NUR ---
Pt is manic, yelling, spitting on the floor, not redirectable. Pt is non-sensical, has episodes of banging on the doors, wonders into wrong rooms. Dr. Rodríguez, ordered Zyprexa 10 mg, Ativan 1 mg IM. Given with presence of security. Pt tolerated well. pt is wake, continues to ramble and needs constant monitoring.
--- NOTE | 2020-05-03 13:02 | NUR ---
SW Family Contact: This SW contacted patient's Kathleen ([phone]) to discuss discharge planning, however, she was unavailable and this SW left a voicemail.
[2020-05-03 16:00] VITALS: BP 84/50
--- NOTE | 2020-05-03 17:15 | NUR ---
Patient blood pressure is 89/49. Spoke with Dr. Rodríguez. Per Dr. Rodríguez, hold 1700 dose of Clonazepam due to low blood pressure.
[2020-05-03] MEDS: SIMVASTATIN 20 MG TABLET PO SCH (18:20)
--- NOTE | 2020-05-03 18:59 | NUR ---
Patient AOx4. No signs of acute distress. Patient is yelling and wandering in the hallways. Not redirectable at times. Need strict directions when taking medications. Does not want to stay in room. Will endorse to incoming shift.
[2020-05-03 20:18] VITALS: BP 91/52
[2020-05-03] MEDS: TEMAZEPAM 7.5 MG CAPSULE PO PRN (22:12)
[2020-05-04] MEDS: ACETAMINOPHEN 325 MG TABLET PO PRN (03:14)
[2020-05-04] MEDS: LORAZEPAM 1 MG TABLET PO PRN ×2 (03:15→19:55)
--- NOTE | 2020-05-04 06:27 | NUR ---
Received patient awake and alert standing at the nurses station. No s/s of acute distress noted at this time. Patient was yelling and disturbing others. PRN medications administered. Patient slept 0.3 hours last night. Patient behavior was managed with constant redirection and limit setting from staff and would benefit from a 1:1 sitter. Addendum: 05/04/20 at 0645 by MIKAELA SANDHU RN Patient currently fell asleep in the ai chair. Will continue to monitor for safety and endorse to oncoming nurse.
[2020-05-04 07:30] VITALS: BP 136/79
[2020-05-04] MEDS: FINASTERIDE 5 MG TABLET PO SCH (08:23)
[2020-05-04] MEDS: OMEGA-3 FATTY ACIDS/FISH OIL CAPSULE PO SCH (08:23)
[2020-05-04] MEDS: DIVALPROEX SPRINKLE 125 MG CAP.SPRINK PO SCH ×5 (08:23→20:08)
[2020-05-04] MEDS: OLANZAPINE ZYDIS 5 MG TAB.RAPDIS PO SCH ×3 (08:24→16:48)
[2020-05-04] MEDS: CYANOCOBALAMIN 1,000 MCG TABLET PO SCH (08:24)
[2020-05-04] MEDS: FUROSEMIDE 40 MG TABLET PO SCH (08:24)
[2020-05-04] MEDS: CLONAZEPAM 0.5 MG TABLET PO SCH (08:25)
[2020-05-04] MEDS: AMLODIPINE 5 MG TABLET PO SCH (08:26)
[2020-05-04] MEDS: LISINOPRIL 10 MG TABLET PO SCH ×2 (08:26→16:48)
[2020-05-04] MEDS: ATENOLOL 50 MG TABLET PO SCH (09:00)
--- NOTE | 2020-05-04 09:59 | NUR ---
PIPPA PC Hearing: Patient had [id number] probable cause hearing today and it was upheld for grave disability.
[2020-05-04 12:02] LABS: *BILIRUBIN,URIN NEGATIVE (NEGATIVE); *BLOOD, URINE NEGATIVE (NEGATIVE); *CLARITY,URINE CLEAR (CLEAR); *COLOR,URINE YELLOW (YELLOW); *KETONES,URINE TRACE (NEGATIVE); *UROBILINOGEN,URINE 0.2 E.U./dl (NORMAL); LEUKOCYTE ESTERASE ,URINE NEGATIVE (NEGATIVE); NITRITE, URINE NEGATIVE (NEGATIVE); UGLUCOSE NEGATIVE (NEGATIVE)
--- NOTE | 2020-05-04 14:03 | NUR ---
SW Family Contact: This SW attempted to contact patient's Kathleen ([phone]) twice and she answered the phone. When SW attempted to introduce self she hung up the phone. This SW will attempt to call again at a later time. This SW will contact patient's sister Lorin ([phone]) to discuss discharge plan.
--- NOTE | 2020-05-04 14:13 | NUR ---
SW Family Contact: This SW contacted patient's sister Lorin ([phone]) to help to contact patient's . Lorin stated that Kathleen ([phone]) is the DPOA, however, no paper works were provided and unable to reach Kathleen. This SW asked sister Lorin to be in contact with Kathleen to contact this SW.
--- NOTE | 2020-05-04 14:17 | NUR ---
Individual Counseling: log pond worker met with patient for brief counseling and assessed for patient's presenting problem manic mood. Patient presented with manic mood. Patient unable to have a proper conversation. Patient stating that his is here. Patient is responding to internal stimuli. This SW was unable to conduct proper therapy at this time.
--- NOTE | 2020-05-04 14:27 | NUR ---
SW Family Contact: This SW attempted to contact patient's Kathleen ([phone]) she answered the phone and SW discussed treatment and discharge plan with Kathleen. She stated she wants him back home and for this SW to [place] off to the airport. This SW discussed safety issues. She stated "Ok, when he is ready let him come back home". Kathleen stated let me call with a pay phone. This SW will attempt to discuss treatment plan and discharge plan again.
--- NOTE | 2020-05-04 14:50 | NUR ---
PIPPA Family Contact: This SW contacted Kathleen ([phone]) patient's and left a voicemail to fax this PIPPA DPOA paperworks.
[2020-05-04 16:54] VITALS: BP 105/53
[2020-05-04] MEDS: SIMVASTATIN 20 MG TABLET PO SCH (17:03)
--- NOTE | 2020-05-04 18:00 | NUR ---
received a phone call from patients Kathleen , patients made aware regarding the SW trying to reach her regarding patients discharge planning, relayed information to SW, will continue follow up
--- NOTE | 2020-05-04 19:21 | NUR ---
Patient remained awake throughout shift. No signs of acute distress. Patient yelling and was banging on gerichair tray. Needs frequent redirection. Compliant with medications. Will endorse to incoming shift.
[2020-05-04 20:00] VITALS: BP 114/60
[2020-05-04] MEDS: QUETIAPINE FUMARATE 100 MG TABLET PO SCH ×2 (20:08→21:49)
[2020-05-05] MEDS: LORAZEPAM 1 MG TABLET PO PRN ×2 (00:43→17:46)
--- NOTE | 2020-05-05 00:45 | NUR ---
PATIENT AWAKE IN [place]-CHAIR. PATIENT ASSISTED TO THE BATHROOM. PATIENT IS VERY ANXIOUS AND BECOMES EASILY AGITATED. NEEDS FREQUENT REDIRECTION. PATIENT GIVEN ATIVAN 1MG PO PRN. WILL CONTINUE TO MONITOR AND ASSESS. ALL NEEDS ATTENDED.
--- NOTE | 2020-05-05 02:00 | NUR ---
PATIENT ASLEEP. NO RESP. DISTRESS NOTED. WILL CONTINUE TO MONITOR AND ASSESS.
[2020-05-05 07:30] VITALS: BP 151/84
--- NOTE | 2020-05-05 09:46 | NUR ---
SW Family Contact: This SW contacted Kathleen ([phone]) patient's and left a voicemail to fax this PIPPA DPOA paperworks and stated this SW has been contacting multiple times requesting this paperwork. This stated that we would need to discuss discharge plan whether patient will come back home or would need a SNF.
[2020-05-05] MEDS: OLANZAPINE ZYDIS 5 MG TAB.RAPDIS PO SCH ×3 (10:30→17:39)
[2020-05-05] MEDS: ATENOLOL 50 MG TABLET PO SCH (10:31)
[2020-05-05] MEDS: DIVALPROEX SPRINKLE 125 MG CAP.SPRINK PO SCH ×4 (10:31→20:33)
[2020-05-05] MEDS: OMEGA-3 FATTY ACIDS/FISH OIL CAPSULE PO SCH (10:31)
[2020-05-05] MEDS: AMLODIPINE 5 MG TABLET PO SCH (10:31)
[2020-05-05] MEDS: FUROSEMIDE 40 MG TABLET PO SCH (10:32)
[2020-05-05] MEDS: LISINOPRIL 10 MG TABLET PO SCH ×2 (10:32→17:39)
[2020-05-05] MEDS: FINASTERIDE 5 MG TABLET PO SCH (10:32)
[2020-05-05] MEDS: CYANOCOBALAMIN 1,000 MCG TABLET PO SCH (10:33)
--- NOTE | 2020-05-05 14:53 | NUR ---
Individual Counseling: community worker met with patient for brief counseling and assessed for patient's presenting problem manic mood. Patient appeared labile and manic. Patient was unable to be cooperative with this SW. Patient appeared to be responding to internal stimuli. This SW was unable to conduct therapy at this time due to patient being uncooperative.
[2020-05-05 15:31] VITALS: BP 117/69
[2020-05-05] MEDS: SIMVASTATIN 20 MG TABLET PO SCH (18:20)
[2020-05-05] MEDS: QUETIAPINE FUMARATE 100 MG TABLET PO SCH (20:33)
[2020-05-05 21:04] VITALS: BP 143/79
[2020-05-05] MEDS: diphenhydrAMINE 50 MG CAPSULE PO PRN (22:49)
[2020-05-06] MEDS: LORAZEPAM 1 MG TABLET PO PRN (03:29)
--- NOTE | 2020-05-06 03:29 | NUR ---
patient is yelling laud and banging on the tabel. ativan 1 mg po given.
--- NOTE | 2020-05-06 06:30 | NUR ---
GPS: Patient remained awake most of the shift. No signs of acute distress. Patient yelling and was banging on gerichair tray. ativan 1 mg po given for agitation and benadryal 50 mg po given for sleep. still patient slept only 1.15 hrs through the night.Needs frequent redirection. Compliant with medications. continue plan of care.
[2020-05-06 07:30] VITALS: BP 135/66
[2020-05-06] MEDS: OLANZAPINE ZYDIS 5 MG TAB.RAPDIS PO SCH ×3 (08:35→16:23)
[2020-05-06] MEDS: OMEGA-3 FATTY ACIDS/FISH OIL CAPSULE PO SCH (08:35)
[2020-05-06] MEDS: DIVALPROEX SPRINKLE 125 MG CAP.SPRINK PO SCH ×4 (08:35→20:03)
[2020-05-06] MEDS: FUROSEMIDE 40 MG TABLET PO SCH (08:35)
[2020-05-06] MEDS: CYANOCOBALAMIN 1,000 MCG TABLET PO SCH (08:36)
[2020-05-06] MEDS: FINASTERIDE 5 MG TABLET PO SCH (08:36)
[2020-05-06] MEDS: LISINOPRIL 10 MG TABLET PO SCH ×2 (08:36→16:38)
[2020-05-06] MEDS: ATENOLOL 50 MG TABLET PO SCH (08:36)
[2020-05-06] MEDS: AMLODIPINE 5 MG TABLET PO SCH (08:37)
[2020-05-06 16:00] VITALS: BP 117/62
[2020-05-06] MEDS: SIMVASTATIN 20 MG TABLET PO SCH (17:12)
--- NOTE | 2020-05-06 18:29 | NUR ---
RECEIVED PATIENT ON GERICHAIR, PATIENT MANIC, HYPERVERBAL, TALKING NON SENSICAL, PATIENT, REDIRECTABLE NEEDED PROMPTING, PATIENT COMPLIANT WITH MEDICATION, NO SIGN OF DISTRESS
--- NOTE | 2020-05-06 19:45 | NUR ---
PATIENT IN RECLINING CHAIR, WITH ON AND OFF MANIC EPISODE, TALKING TO NON SENSICAL, CONT TO REORIENT PATIENT, GIVEN SNACK AND FLUIDS. CONT TO MONITOR.
[2020-05-06 20:00] VITALS: BP 136/57
[2020-05-06] MEDS: QUETIAPINE FUMARATE 100 MG TABLET PO SCH (20:03)
[2020-05-06] MEDS: diphenhydrAMINE 50 MG CAPSULE PO PRN (22:01)
--- NOTE | 2020-05-06 23:39 | NUR ---
RECEIVED PATIENT IN RECLINING CHAIR, WITH EPISODE OF YELLING, CRAYING, NON SENSENCIAL, WORD SALAD. PATIENT GIVEN NOURISMENT AND FLUIDS. PATIENT ASSISTED TO THE TOILET FOR BLADDER ELIMINATION, KEPT CLEAN AND DRY. PATIENT ASSISTED WITH AMBULATION. PATIENT WAS PUT TO BED TO REST, BUT PATIENT HAS MULTIPLE ATTEMPT TO GET OUT OF BED, RISK FOR FALL. ASSISTED BACK TO RECLINING CHAIR. PATIENT WAS GIVEN BENADRYL 50MG PO FOR SLEEP, MEDS NOT WORKING YET. CONT TO MONITOR.
--- NOTE | 2020-05-07 02:00 | NUR ---
PATIENT STILL AWAKE, YELLING AND BANGGING THE TABLE. PATIENT WAS OFFERED PRN MEDICATION FOR ANXIETY, BUT STATED STRONGLY "I DON'T WANT IT", OFFERED FOOD, AND JUICE BUT REFUSED. CONT TO MONITOR.
--- NOTE | 2020-05-07 02:30 | NUR ---
PATIENT LOOK TIRED AND SLEEPY, ASSITED BACK TO BED. PATIENT SLEEP FOR 30 MINUTES ONLY THEN TRIED TO CLIMB OUT OF BED, BED ALARM WAS PUT ON. PATIENT WAS CLOSELY MONITOR, RISK FOR FALL. CONT TO MONITOR.
[2020-05-07 07:30] VITALS: BP 144/76
--- NOTE | 2020-05-07 07:30 | NUR ---
Received patient is sitting in ai chair in the TV room. Patient is awake, alert and oriented times 1. Patient is hyperverbal. No sign of distress noted. All safety precautions have been put in place. Will continue to monitor.
[2020-05-07] MEDS: CYANOCOBALAMIN 1,000 MCG TABLET PO SCH (09:07)
[2020-05-07] MEDS: OLANZAPINE ZYDIS 5 MG TAB.RAPDIS PO SCH ×3 (09:07→17:09)
[2020-05-07] MEDS: OMEGA-3 FATTY ACIDS/FISH OIL CAPSULE PO SCH (09:07)
[2020-05-07] MEDS: AMLODIPINE 5 MG TABLET PO SCH (09:07)
[2020-05-07] MEDS: FINASTERIDE 5 MG TABLET PO SCH (09:07)
[2020-05-07] MEDS: DIVALPROEX SPRINKLE 125 MG CAP.SPRINK PO SCH ×4 (09:07→20:05)
[2020-05-07] MEDS: ATENOLOL 50 MG TABLET PO SCH (09:08)
[2020-05-07] MEDS: LISINOPRIL 10 MG TABLET PO SCH ×2 (09:08→17:09)
[2020-05-07] MEDS: FUROSEMIDE 40 MG TABLET PO SCH (09:08)
[2020-05-07 16:00] VITALS: BP 153/83
[2020-05-07] MEDS: SIMVASTATIN 20 MG TABLET PO SCH (17:08)
--- NOTE | 2020-05-07 18:39 | NUR ---
Patient is resting in chair in the TV lounge. Gave all medications as ordered. Patient was less disruptive today. Speech was disorganized and has flight of ideas. Safety measures are in place. Will endorse to the oncoming nurse.
[2020-05-07] MEDS: ACETAMINOPHEN 325 MG TABLET PO PRN (19:42)
[2020-05-07] MEDS: QUETIAPINE FUMARATE 100 MG TABLET PO SCH (20:05)
[2020-05-07 20:23] VITALS: BP 123/75
[2020-05-08] MEDS: diphenhydrAMINE 50 MG CAPSULE PO PRN (01:14)
[2020-05-08] MEDS: LORAZEPAM 1 MG TABLET PO PRN (01:14)
[2020-05-08] MEDS ORDERED: diphenhydrAMINE 50 MG/1 ML VIAL IM ONE (01:50)
[2020-05-08] MEDS ORDERED: LORAZEPAM 2 MG/1 ML VIAL IM ONE (01:50)
--- NOTE | 2020-05-08 03:05 | NUR ---
Chemical Restraint Note: Pt placed in ai chair for his own safety, he is unable and unwilling to follow direction from staff to avoid injury as he is very unsteady, weak, and requires maximum assistance. Pt became increasingly delusional, agitated, and threatening toward staff. Prn Ativan 1mgand Benadryl 50mg administered PO @ 0114 and ineffective. Reorientation and de-escalation techniques were also ineffective. Dr Davey notified of Pts behavior, and Ativan 2mg with Benadryl 50mg IM ordered. Medication administered @ 0200 to (L) and (R) deltoids without complication, no injuries to pt or staff. After approximately 30 minutes, Pt was calmer and more redirectable. Pt monitored q 15 minutes for 1 hour, no s/s of distress noted. Pt placed in bed with staff assistance. Pt observed breathing even and unlabored, VS WDL. Pt refused to give verbal permission to call his regarding IM. Will continue to monitor.
--- NOTE | 2020-05-08 06:56 | NUR ---
PT SLEPT 5 H. PT IN NO ACUTE DISTRESS.PRESCRIBED MEDICATION GIVEN AND PT TOLERATED IT WELL.PT TOLERATED IT WELL. PT GIVEN TYLENOL PRN AT 1929H AND H. PT GIVEN ATIVAN PRN AT 0114H AND BENADRYL 0114H . PT ANXIOUS , INCREASING DELUSION AND TRYING TO HIT STAFF ,THREATENING STAFF AND NOT BEING CONTROLLED . PT GIVEN PRN ATIVAN IM 2MG AND BENADRYL 50 MG AT 0200H. PT TOLERATED IT WELL. PT VITAL SIGNS STABLE. SAFETY AND COMFORT PROVIDED. ALL NEEDS ARE MET. WILL ENDORSE TO INCOMING NURSE FOR CONTINUITY OF CARE.
[2020-05-08 07:30] VITALS: BP 138/79
[2020-05-08] MEDS: AMLODIPINE 5 MG TABLET PO SCH (11:18)
[2020-05-08] MEDS: DIVALPROEX SPRINKLE 125 MG CAP.SPRINK PO SCH ×3 (11:18→17:00)
[2020-05-08] MEDS: LISINOPRIL 10 MG TABLET PO SCH ×2 (11:18→17:00)
[2020-05-08] MEDS: FUROSEMIDE 40 MG TABLET PO SCH (11:18)
[2020-05-08] MEDS: OMEGA-3 FATTY ACIDS/FISH OIL CAPSULE PO SCH (11:18)
[2020-05-08] MEDS: OLANZAPINE ZYDIS 5 MG TAB.RAPDIS PO SCH ×3 (11:19→17:00)
[2020-05-08] MEDS: ATENOLOL 50 MG TABLET PO SCH (11:19)
[2020-05-08] MEDS: FINASTERIDE 5 MG TABLET PO SCH (11:19)
[2020-05-08] MEDS: CYANOCOBALAMIN 1,000 MCG TABLET PO SCH (11:19)
--- NOTE | 2020-05-08 12:05 | NUR ---
WOUND CARE CONSULT: PT SEEN FOR REDNESS/DISCOLORATION TO LOWER LEGS WITH EDEMA, PRESENT ON ADMISSION. SKIN ON LOWER LEGS IS VERY SHINY WITH SOME DISCOLORATION AND EDEMA. RECOMMEND DPM CONSULT. DR CASILLAS NOTIFIED. IN AGREEMENT WITH PLAN OF CARE. Addendum: 05/09/20 at 0834 by KEEGAN GAGE RN ABOVE WOUND CONSULT ASSESSMENT NOT PRESENT ON ADMISSION.
[2020-05-08] MEDS ORDERED: Z GUARD REMEDY PASTE 57 GM TUBE TOP PRN (12:15)
--- NOTE | 2020-05-08 14:06 | NUR ---
patient has been asleep this shift. Received emergency IM medication on the previous shift. patient is in no acute distress. respirations are even and unlabored, no acute respiratory distress noted. patient seen by director of special services for redness and edema on BLE. per wound care nurse, consult placed for office receptionist. patient's PO medications held this shift because patient is asleep and unable to swallow medication. patient seen by psychiatrist this AM. will assess patient once awake. Addendum: 05/08/20 at 1524 by SHONA HEIN RN patient is arousable to name and touch.
--- NOTE | 2020-05-08 14:49 | NUR ---
Individual Counseling: channel worker met with patient for brief counseling and assessed for patient's presenting problem manic mood. Patient appeared labile and manic. Patient was uncooperative at this time as patient was sleeping and did not want to be interrupted. SW unable conduct therapy at this time.
[2020-05-08 15:14] VITALS: BP 121/99
[2020-05-08] MEDS: SIMVASTATIN 20 MG TABLET PO SCH (17:10)
--- NOTE | 2020-05-08 17:11 | NUR ---
1700 PO medications held because patient is still asleep. respirations are even and unlabored, no signs of respiratory distress noted. patient is arousable to name and touch. patient seen by commissary representative, instructed to continue to elevate patient's lower extremities and continue administering PO Lasix. patient sitting in chair with lower extremities elevated. will endorse to oncoming nurse.
--- NOTE | 2020-05-08 19:30 | NUR ---
1924 RECEIVED REPORT FROM AM RN THAT PATIENT STILL SLEEPING SINCE THIS MORNING, AND ALL MEDICATIONS WAS HELD. PATIENT V/S STABLE ACCORDING TO AM RN. 1929 MADE ROUNDS, AND NOTED PATIENT NOT BREATHING, NO PULSE, [facility] WAS CALLED.
--- NOTE | 2020-05-08 20:31 | NUR ---
PATIENT HAS NO PULSE, NOT BREATHING, NON RESPONSIVE, CPR STARTED.
[2020-05-08] MEDS ORDERED: QUETIAPINE FUMARATE 100 MG TABLET PO SCH (21:00)
--- NOTE | 2020-05-08 22:10 | NUR ---
[facility] NOTIFIED, R [id number], AND STATED THAT PATIENT UN ELIGIBLE FOR ORGAN DONATIONS. NOTIFY RN SUP.
--- NOTE | 2020-05-08 23:00 | NUR ---
PATIENT SANDY MYERS WAS ON THE PHONE AND ASKED HER IF SHE HAVE MORTUARY ARRANGE YET, AND SHE ANSWERED NO SHE DON'T HAVE ARRANGEMENT YET
--- NOTE | 2020-05-08 23:26 | NUR ---
193 AJIT ALVARADO WAS INITATED. [facility] PROTOCOL FOLLOWED, ER MD,ELECTRIC MOTOR AND GENERATOR ASSEMBLER, ER RT, PHARMACIST AND NURSING SUP AT BEDSIDE. 2006 PATIENT WAS PRONOUNCED BY DR. BARBOSA 2134 WAS NOTIFIED BY MARIUM KIM.
== END 2020-05-09 00:20 | disposition expired | DRG 885 ==
LOC: ER 13:39 → GPS 15:00
PROVIDERS: ADMIT Psychiatry & Neurology Psychiatry; ATTEND Nurse Practitioner Family
PROC: 0BH18EZ Insertion of Endotracheal Airway into Trachea, Via Natural or Artificial Opening Endoscopic (ICD-10-PCS; principal; 2020-05-08)
PROC: 5A12012 Performance of Cardiac Output, Single, Manual (ICD-10-PCS; 2020-05-08)
DX: F25.0 Schizoaffective disorder, bipolar type (principal); E87.1 Hypo-osmolality and hyponatremia; E78.5 Hyperlipidemia, unspecified; N40.0 Benign prostatic hyperplasia without lower urinary tract symptoms; I10 Essential (primary) hypertension; Z73.6 Limitation of activities due to disability; R60.9 Edema, unspecified; I87.2 Venous insufficiency (chronic) (peripheral); F10.10 Alcohol abuse, uncomplicated; L73.8 Other specified follicular disorders
CPT/HCPCS: 36415; 71045; 80164; 84443; 84481; A4663; J1200; J2060; J2358; J3230; J3535; Q0163